=== PATIENT | male | born 1960 ===

== ENCOUNTER 2023-05-27 08:14 | Outpatient (CLI) | payer OTHER | END 2023-05-27 08:18 | disposition home or self-care (01) | LOC: LAB 08:14 | PROVIDERS: ATTEND Surgery Surgery of the Hand | DX: Z01.812 Encounter for preprocedural laboratory examination (principal); Z01.818 Encounter for other preprocedural examination; D68.9 Coagulation defect, unspecified ==

== ENCOUNTER 2023-06-04 06:00 | Day surgery (SDC) | payer OTHER | END 2023-06-04 12:40 | disposition home or self-care (01) | LOC: CIR.AMB 06:00 | PROVIDERS: ATTEND Surgery Surgery of the Hand | DX: M72.0 Palmar fascial fibromatosis [Dupuytren] (principal); Z20.822 Contact with and (suspected) exposure to COVID-19 ==